=== PATIENT | female | born 1990 | race African-American/Black ===

== ENCOUNTER 2016-12-03 13:55 | Emergency (ER) | payer BC ==
[~2016-12-03] VITALS: Ht 162.6 cm; Wt 73.9 kg
[~2016-12-03 13:55] MED LIST: FLV1 PO; LBR25 PO; MULT-589 PO; NALT50TA5 PO; ONDA4TAB46 PO; SERT-234 PO; THM50 PO; VNCS125 PO
[2016-12-03 14:00] VITALS: TEMP 36.8; Ht 162.6 cm; Wt 73.9 kg
[2016-12-03] MEDS ORDERED: CLON0.5T3 PO (14:25)
--- NOTE | 2016-12-03 15:11 | EMERGENCY ROOM VISIT NOTE ---
History Report prepared by Estephania: Kindra Patiño Under the Supervision of: Dr. Josue Ruvalcaba D.O. First contact with patient: 14:46 Chief Complaint: ANXIETY Stated Complaint: DIARRHEA, VOMITING, NO APPETITE, ANXIOUS History of Present Illness The patient is a 26 year old female who presents to the Emergency Room with complaints of persistent, worsening anxiety that began prior to arrival. The patient states that she currently ran out of her prescribed Klonopin and Adderall. She states that she has a history of suicidal and homicidal ideations. The patient denies any current ideations right now and states that she does not wish to get to the point of being evaluated in the [facility] for psychiatric care. She additionally notes a history of alcohol abuse, stating that she follows with therapists at [facility] for her addiction problems. The patient states that she does not want to slat pickler alcohol again, even though she knows it will make her feel better. She states that she has a history of a portal vein thrombosis and pancreatitis. The patient states that she hasn't eaten in several days due to her lack of appetite. She states that she smoked a cigarette yesterday and states that she has used marijuana. The patient states that she has been following with several therapists and is trying to get set up with someone to prescribe her Adderall and Klonopin for her. Source of History: patient Onset: prior to arrival Position: other (global) Quality: other (anxiety) Timing: worsening, other (persistent) Note: Associated Symptoms: lack of appetite Review of Systems See HPI for pertinent positives & negatives. A total of 10 systems reviewed and were otherwise negative. Past Medical & Surgical Medical Problems: (1) Depression Family History Alcoholism FATHER Bipolar disorder MOTHER Cancer Hypertension FATHER MOTHER Myocardial infarction GRANDFATHER Social History Smoking Status: Current Some Day Smoker Alcohol Use: heavy Drug Use: marijuana Marital Status: single Housing Status: lives with roommate Occupation Status: employed, [employer] student Current/Historical Medications Scheduled Folic Acid (Folic Acid), 1 MG PO QAM Multivitamins (Daily Nahun), 1 TAB PO QAM Naltrexone Hcl (Naltrexone Hcl), 1 TAB PO DAILY Sertraline (Zoloft), 100 MG PO DAILY Thiamine HCl (Vitamin B-1), 50 MG PO QAM Scheduled PRN Ondansetron Hcl (Zofran), 4 MG PO Q8H PRN for Nausea Miscellaneous Medications Clonazepam (Klonopin), 0.5 MG PO Allergies Coded Allergies: No Known Allergies (Unverified , 12/03/16) Physical Exam Vital Signs Date Time Temp Pulse Resp B/P Pulse Ox O2 Delivery O2 Flow Rate FiO2 12/03/16 17:04 78 18 128/96 98 Room Air 12/03/16 14:00 36.8 80 18 141/87 97 Room Air Physical Exam GENERAL: Patient is asleep when we entered the room, but arouses easily to verbal commands. EYES: The conjunctivae are clear. The pupils are round and reactive. EARS, NOSE, MOUTH AND THROAT: The nose is without any evidence of any deformity. Mucous membranes are moist tongue is midline NECK: The neck is nontender and supple. RESPIRATORY: Normal respiratory effort is noted there is no evidence of wheezing rhonchi or rales CARDIOVASCULAR: Regular rate and rhythm noted there no murmurs rubs or gallops normal S1 normal S2 GASTROINTESTINAL: The abdomen is soft. Bowel sounds are present in all quadrants. Abdomen is nontender MUSCULOSKELETAL/EXTREMITIES: There is no evidence of gross deformity full range of motion is noted in the hips and shoulders SKIN: There is no obvious evidence of any rash. There are no petechiae, pallor or cyanosis noted. NEUROLOGIC: Patient is awake alert and oriented x3 strength is symmetric patellar reflexes are 2+ bilaterally PSYCH: The patient makes good eye contact. Affect is normal. Currently denying any suicidal or homicidal ideation. Medical Decision & Procedures ED Course 1458: The patient was evaluated in room A6. A complete history and physical examination were performed. 1546: I reevaluated the patient and discussed options with the psych case manager specialist. 1730: After further evaluation, the patient is okay to go home. I discussed the treatment plan with her and she verbalized complete understanding and agreement. She is ready to go home. Medical Decision Differential diagnosis: Etiologies such as mood disorder, infection, hypoglycemia, electrolyte abnormalities, cardiac sources, intracerebral event, toxicologic, neurologic, as well as others were entertained. Nursing notes reviewed. The patient is a 26-year-old female who presented to the emergency department for an evaluation of anxiety. The patient has a history of anxiety is been having significant problems recently with school work. The patient normally controls her alcohol but has recently developed problems with pancreatitis and can no longer drink alcohol. She was started on medications for anxiety but unfortunately medications. The patient presents to the emergency department after an evaluation by her therapist for possible mental health evaluation and possible medical evaluation. The patient's abdominal exam was not consistent with an acute surgical abdomen. Her vital signs were reviewed. The patient was also evaluated by the emergency Department case manager specialist. At this time no inpatient criteria were met. The patient was reevaluated times. We tried to get the patient follow-up information is best we could. The patient was encouraged to follow-up with your therapist as soon as possible. She was also encouraged to try to get her prescriptions filled that she could. She was also encouraged to call crisis or return to emergency department immediately if symptoms change worsen or the need arises. Impression Primary Impression: Anxiety Scribe Attestation The scribe's documentation has been prepared under my direction and personally reviewed by me in its entirety. I confirm that the note above accurately reflects all work, treatment, procedures, and medical decision making performed by me. Departure Information Dispostion Home / Self-Care Referrals No Doctor, Assigned (PCP) Forms HOME CARE DOCUMENTATION FORM, IMPORTANT VISIT INFORMATION, School Instructions, Work Instructions Patient Instructions Anxiety Body Response, Anxiety Disorder, My [facility] Additional Instructions Follow-up with your therapist as soon as possible. Call crisis or return to the emergency department if symptoms worsen or if need arises.
[2016-12-03 17:04] VITALS: BP 128/96; PULSE 78; O2SAT 98
== END 2016-12-03 17:45 | disposition home or self-care (01) ==
LOC: C.EDB 14:01 → C.EDA 17:45
DX: F41.9 Anxiety disorder, unspecified (principal); F32.9 Major depressive disorder, single episode, unspecified; F17.200 Nicotine dependence, unspecified, uncomplicated; Z79.899 Other long term (current) drug therapy; Z82.49 Family history of ischemic heart disease and other diseases of the circulatory system; Z80.9 Family history of malignant neoplasm, unspecified; Z81.8 Family history of other mental and behavioral disorders

== ENCOUNTER 2017-02-16 10:01 | Emergency (ER) | payer BC, OTHER ==
[~2017-02-16] VITALS: Ht 162.6 cm; Wt 78.0 kg
[~2017-02-16 10:01] MED LIST changes: +CLON0.5T3 PO; -LBR25 PO; -VNCS125 PO
[2017-02-16 10:25] VITALS: TEMP 36.9; Ht 162.6 cm; Wt 78.0 kg
[2017-02-16] MEDS ORDERED: ALCOHOL PO (11:39)
[2017-02-16] MEDS ORDERED: AMPH10TA2 PO (11:39)
[2017-02-16] MEDS ORDERED: THC PO (11:39)
[2017-02-16] MEDS ORDERED: ALPR1TAB3 PO (11:39)
[2017-02-16] MEDS ORDERED: LAMO25TA PO (11:39)
--- NOTE | 2017-02-16 12:18 | EMERGENCY ROOM VISIT NOTE ---
History Report prepared by Estephania: Josué Logan Under the Supervision of: Dr. Zoe Corrales D.O. First contact with patient: 11:26 Chief Complaint: ANXIETY Stated Complaint: ANXIETY,INSOMNIA History of Present Illness The patient is a 26 year old female who presents to the Emergency Room with complaints of persistent anxiety that began prior to arrival. The patient has a history of anxiety over the past six years, since she began college and states that she becomes agitated. She states that she takes Adderall and Xanax. The patient states that she drinks alcohol on the weekends, but states that she only drinks beer or wine. She states that she stopped drinking liquor , but states that she does consider herself an alcoholic from time to time. The patient states that she was supposed to have finals this week. She states that she follows with [employer] on campus for her anxiety. The patient states that she has been evaluated in the past for her anxiety. She states that her last mental health evaluation was in the spring. The patient states that she was evaluated in the emergency department and then evaluated in the [facility]. The patient reports a previous history of self mutilation. She additionally notes a history of pancreatitis, stating that she previously was placed on ventilator and had a trach placed. The patient states that she is currently on her menstrual cycle. She states that she is experiencing left thumb pain, and additionally notes that she fell and hit her head the other day. The patient states that she took THC and Lorazepam today. She is unsure if the marijuana she uses is synthetic or not. Source of History: patient Onset: prior to arrival Position: other (global) Quality: other (anxiety) Timing: other (persistent) Note: Associated Symptoms: agitation Review of Systems See HPI for pertinent positives & negatives. A total of 10 systems reviewed and were otherwise negative. Past Medical & Surgical Medical Problems: (1) Depression Family History Alcoholism FATHER Bipolar disorder MOTHER Cancer Hypertension FATHER MOTHER Myocardial infarction GRANDFATHER Social History Smoking Status: Current Some Day Smoker Alcohol Use: heavy Drug Use: marijuana Marital Status: single Housing Status: lives with roommate Occupation Status: employed, [employer] student Current/Historical Medications Scheduled Alprazolam (Xanax), Unknown Dose PO UD Amphetamine-Dextroamphetamine 10MG (Adderall 10MG), Unknown Dose PO BID Hydroxyzine Pamoate (Vistaril), 1 CAP PO TID [Alcohol ], Unknown Dose PO 2XWK [Thc], Unknown Dose PO UD Miscellaneous Medications Lamotrigine (Lamictal), Unknown Dose PO Allergies Coded Allergies: No Known Allergies (Unverified , 02/16/17) Physical Exam Vital Signs Date Time Temp Pulse Resp B/P Pulse Ox O2 Delivery O2 Flow Rate FiO2 02/16/17 17:53 77 142/83 99 02/16/17 13:31 79 18 151/89 98 Room Air 02/16/17 12:00 78 20 147/94 98 Room Air 02/16/17 10:25 36.9 99 18 151/101 99 Room Air Physical Exam General: Lethargic, appears under the influence of something, unkempt. HEENT: Head - normocephalic and atraumatic Pupils are equal, round, and reactive to light. Extraocular eye muscles are intact, and sclera are anicteric. Nose - moist nasal mucosa without discharge. Mouth - moist buccal mucosa. Oropharynx is nonerythematous and there is no tonsillar exudate or edema noted. Neck: Supple; no JVD, nuchal rigidity, cervical lymphadenopathy. Heart: Regular rate and rhythm. There is a normal S1 and S2 with no murmurs, clicks, or gallops appreciated. Lungs: Clear to auscultation bilaterally with no wheezes, rales, or rhonchi. Abdomen: Soft, completely nontender, nondistended, with good bowel sounds. There are no palpable pulsatile masses or hepatosplenomegaly. There is no guarding, rigidity, or rebound noted. Extremities: Edema to the base of the left thumb. Pain with palpation. No pain to palpation over the anatomical snuffbox of the left hand. Old self mutilation scar to the left forearm. No evidence of cyanosis, clubbing. There are easily palpable peripheral pulses. Skin: warm and dry with good turgor and no rashes. Psych: Describes agitation, anxiety, appears under influence of drugs or alcohol , denies suicidal ideation. Medical Decision & Procedures ER Provider Diagnostic Interpretation: X-ray results as stated below per interpretation by me and the radiologist: LEFT HAND MIN 3 VIEWS ROUTINE CLINICAL HISTORY: eval left thumb for fx trauma. Pain. COMPARISON: None. DISCUSSION: The bones and joint spaces appear intact. There is no evidence of fracture, dislocation or bony disease. There is no evidence for soft tissue swelling. IMPRESSION: Negative study. Electronically signed by: Alvin Renner M.D. 02/16/2017 12:56 PM Dictated Date/Time: 02/16/2017 12:54 PM Laboratory Results 02/16/17 12:45 Red Blood Count 4.51, Mean Corpuscular Volume 75.4, Mean Corpuscular Hemoglobin 23.7, Mean Corpuscular Hemoglobin Concent 31.5, Mean Platelet Volume 9.2, Neutrophils (%) (Auto) 82.4, Lymphocytes (%) (Auto) 8.7, Monocytes (%) (Auto) 6.6, Eosinophils (%) (Auto) 1.6, Basophils (%) (Auto) 0.3, Neutrophils # (Auto) 12.39, Lymphocytes # (Auto) 1.31, Monocytes # (Auto) 1.00, Eosinophils # (Auto) 0.24, Basophils # (Auto) 0.04 02/16/17 12:45 Test 02/16/17 10:38 02/16/17 12:45 Urine Color YELLOW Urine Appearance CLEAR (CLEAR) Urine pH 7.0 (4.5-7.5) Urine Specific [place] 1.017 (1.000-1.030) Urine Protein NEG (NEG) Urine Glucose (UA) NEG (NEG) Urine Ketones NEG (NEG) Urine Occult Blood 2+ (NEG) Urine Nitrite NEG (NEG) Urine Bilirubin NEG (NEG) Urine Urobilinogen NEG (NEG) Urine Leukocyte Esterase TRACE (NEG) Urine WBC (Auto) 1-5 /hpf (0-5) Urine RBC (Auto) >30 /hpf (0-4) Urine Hyaline Casts (Auto) 0 /lpf (0-5) Urine Epithelial Cells (Auto) 20-30 /lpf (0-5) Urine Bacteria (Auto) NEG (NEG) Urine Test NEG (NEG) Urine Opiates Screen NEG (NEG) Urine Methadone, Qualitative NEG (NEG) Urine Barbiturates NEG (NEG) Urine Phencyclidine (PCP) Level NEG (NEG) Ur Amphetamine/Methamphetamine NEG (NEG) MDMA (Ecstasy) Screen NEG (NEG) Urine Benzodiazepines Screen NEG (NEG) Urine Cocaine Metabolite NEG (NEG) Urine Marijuana (THC) POS (NEG) White Blood Count 15.04 K/uL (4.8-10.8) Red Blood Count 4.51 M/uL (4.2-5.4) Hemoglobin 10.7 g/dL (12.0-16.0) Hematocrit 34.0 % (37-47) Mean Corpuscular Volume 75.4 fL (80-100) Mean Corpuscular Hemoglobin 23.7 pg (25-34) Mean Corpuscular Hemoglobin Concent 31.5 g/dl (32-36) Platelet Count 411 K/uL (130-400) Mean Platelet Volume 9.2 fL (7.4-10.4) Neutrophils (%) (Auto) 82.4 % Lymphocytes (%) (Auto) 8.7 % Monocytes (%) (Auto) 6.6 % Eosinophils (%) (Auto) 1.6 % Basophils (%) (Auto) 0.3 % Neutrophils # (Auto) 12.39 K/uL (1.4-6.5) Lymphocytes # (Auto) 1.31 K/uL (1.2-3.4) Monocytes # (Auto) 1.00 K/uL (0.11-0.59) Eosinophils # (Auto) 0.24 K/uL (0-0.5) Basophils # (Auto) 0.04 K/uL (0-0.2) RDW Standard Deviation 51.3 fL (36.4-46.3) RDW Coefficient of Variation 18.6 % (11.5-14.5) Immature Granulocyte % (Auto) 0.4 % Immature Granulocyte # (Auto) 0.06 K/uL (0.00-0.02) Anion Gap 11.0 mmol/L (3-11) Est Creatinine Clear Calc Drug Dose 143.8 ml/min Estimated GFR () 147.1 Estimated GFR (Non- 126.9 BUN/Creatinine Ratio 22.0 (10-20) Calcium Level 9.9 mg/dl (8.5-10.1) Total Bilirubin 0.2 mg/dl (0.2-1) Direct Bilirubin < 0.1 mg/dl (0-0.2) Aspartate Amino Transf (AST/SGOT) 12 U/L (15-37) Alanine Aminotransferase (ALT/SGPT) 22 U/L (12-78) Alkaline Phosphatase 136 U/L (45-117) Total Protein 7.6 gm/dl (6.4-8.2) Albumin 3.8 gm/dl (3.4-5.0) Thyroid Stimulating Hormone (TSH) 0.901 uIu/ml (0.300-4.500) Salicylates Level 2.0 mg/dl (2.8-20) Acetaminophen Level < 2 ug/ml (10-30) Ethyl Alcohol mg/dL < 3.0 mg/dl (0-3) Laboratory results per my review. I felt, Medications Administered Medications (Trade) Dose Ordered Sig/[place] Route Start Time Stop Time Status Last Admin Dose Admin Acetaminophen (Tylenol Tab) 1,000 mg STK-MED ONCE PO 02/16/17 14:04 02/16/17 14:05 DC 02/16/17 14:07 1,000 MG Procedure The patient was treated with Tylenol Tab 1000 mg PO, Vistaril Tab 25 mg PO. ED Course 1205: Past medical records reviewed. The patient was evaluated in room A5. A complete history and physical exam was performed. Labs were drawn as above. The patient remained lethargic but was able to eat lunch. 1404: Per nursing staff, the patient is complaining of a headache. The patient is additionally medically clear for a further mental health evaluation. Ordered Tylenol Tab 1000 mg PO. 1500: Per the psych nurse case manager, the patient is too sleepy to talk. 1711: I reevaluated the patient and and she is awake and alert. The patient spent a long time speaking with Nayeli the psych nurse case manager. The patient requested medication to help her relax. The patient is not homicidal or suicidal. She is in agreement with the treatment plan and exam findings and is ready to go home. 1729: Ordered Vistaril Tab 25 mg PO. Medical Decision The patient is a 26 year old female who presents to the ED with persistent anxiety. Differential diagnosis includes drug overdose, alcohol intoxication, thumb fracture, mood disorder, thought disorder, suicide attempt. Lab interpretation: white blood cell count 15.0, mildly anemic hemoglobin 10.7, platelet count 411, glucose 125, normal renal function, normal TSH, normal LFTs , alcohol less than 3, tox screen positive for marijuana, salicylate level is 2 , Tylenol level less than 2. This is a 26-year-old female patient who presents to the emergency department complaining of anxiety. She does admit to abusing multiple different drugs. She also complains of pain in her left thumb she believes as a result of falling. She denies injuring herself in any other way during the fall. The patient denies any homicidal or suicidal. She states that she is under a lot of stress because of school. She is currently supposed to be taking her finals. She describes drinking more and taking an unknown med from her house which may have been lorazepam or Lamictal. Regardless what it was, the patient became quite tired from this. Prior to discharge, the patient was no longer lethargic and actually had become anxious again. I've asked the patient to follow up closely with psychiatry. Impression Primary Impression: Polydrug abuse Additional Impression: Anxiety Scribe Attestation The scribe's documentation has been prepared under my direction and personally reviewed by me in its entirety. I confirm that the note above accurately reflects all work, treatment, procedures, and medical decision making performed by me. Departure Information Dispostion Home / Self-Care Prescriptions Hydroxyzine Pamoate (VISTARIL) 25 Mg Cap 1 CAP PO TID, #20 CAP Prov: Zoe Corrales D.OBrian 02/16/17 Referrals No Doctor, Assigned (PCP) Forms HOME CARE DOCUMENTATION FORM, IMPORTANT VISIT INFORMATION Patient Instructions Anxiety Body Response, Anxiety Disorder, My [facility] Additional Instructions Rest Avoid abusing drugs vistaril - for anxiety as directed. Follow up with psych when you return home. You can call - CAN HELP if needed Problem Qualifiers
--- NOTE | 2017-02-16 12:58 | DIAGNOSTIC IMAGING REPORT ---
LEFT HAND MIN 3 VIEWS ROUTINE CLINICAL HISTORY: eval left thumb for fx trauma. Pain. COMPARISON: None. DISCUSSION: The bones and joint spaces appear intact. There is no evidence of fracture, dislocation or bony disease. There is no evidence for soft tissue swelling. IMPRESSION: Negative study. Electronically signed by: Alvin Renner M.D. 02/16/2017 12:56 PM Dictated Date/Time: 02/16/2017 12:54 PM
[2017-02-16 13:02] LABS: BASO % 0.3 %; BASO ABS # 0.04 K/uL (0-0.2); COMPLETE YES; EOS % 1.6 %; IG% 0.4 %; LYMPH % 8.7 %; LYMPH ABS # 1.31 K/uL (1.2-3.4); MEAN CELL VOLUME 75.4 fL (80-100); MEAN CORPUSCULAR HEMOGLOBIN 23.7 pg (25-34); MEAN CORPUSCULAR HGB CONC 31.5 g/dl (32-36); MEAN PLATELET VOLUME 9.2 fL (7.4-10.4); MONO % 6.6 %; NEUT % 82.4 %; PLATELET COUNT 411 K/uL (130-400); RED BLOOD COUNT 4.51 M/uL (4.2-5.4); WHITE BLOOD COUNT 15.04 K/uL (4.8-10.8)
[2017-02-16 13:14] LABS: URINE APPEARANCE CLEAR (CLEAR); URINE BILIRUBIN NEG (NEG); URINE COLOR YELLOW; URINE EPITHELIAL CELL AUTO 20-30 /lpf (0-5); URINE NITRITE NEG (NEG); URINE SPECIFIC GRAVITY 1.017 (1.000-1.030); UROBILINOGEN NEG (NEG)
[2017-02-16 13:23] LABS: ALT/SGPT 22 U/L (12-78); BLOOD UREA NITROGEN 13 mg/dl (7-18); CARBON DIOXIDE 23 mmol/L (21-32); CHLORIDE 106 mmol/L (98-107); CREATININE 0.61 mg/dl (0.60-1.20); GLUCOSE 125 mg/dl (70-99); POTASSIUM 3.5 mmol/L (3.5-5.1); SODIUM 140 mmol/L (136-145)
[2017-02-16 13:27] LABS: BENZODIAZEPINE, URINE NEG (NEG); COCAINE,URINE NEG (NEG); PHENCYCLIDINE, URINE NEG (NEG)
[2017-02-16 13:30] LABS: CALCIUM 9.9 mg/dl (8.5-10.1)
[2017-02-16 13:31] LABS: MANUAL MICROSCOPIC REQUIRED? NO; REVIEW REQ? NO
[2017-02-16 13:33] LABS: ACETAMINOPHEN < 2 ug/ml (10-30); ALKALINE PHOSPHATASE 136 U/L (45-117); AST/SGOT 12 U/L (15-37); THYROID STIMULATING HORMONE 0.901 uIu/ml (0.300-4.500)
[2017-02-16] MEDS ORDERED: ACETAMINOPHEN 500 MG TAB PO ONE (14:04)
[2017-02-16] MEDS ORDERED: HYDR25CA PO (17:18)
[2017-02-16] MEDS ORDERED: hydrOXYzine HCL 25 MG TAB PO STA (17:29)
[2017-02-16 17:53] VITALS: BP 142/83; PULSE 77; O2SAT 99
== END 2017-02-16 17:54 | disposition home or self-care (01) ==
LOC: C.EDB 10:04 → C.EDA 17:54
DX: F19.10 Other psychoactive substance abuse, uncomplicated (principal); F41.9 Anxiety disorder, unspecified; F32.9 Major depressive disorder, single episode, unspecified; F17.200 Nicotine dependence, unspecified, uncomplicated; Z79.899 Other long term (current) drug therapy; Z81.8 Family history of other mental and behavioral disorders; Z80.9 Family history of malignant neoplasm, unspecified; Z82.49 Family history of ischemic heart disease and other diseases of the circulatory system